=== PATIENT | female | born 1955 | race Caucasian/White ===

== ENCOUNTER 2019-06-12 08:08 | Emergency (ER) | payer OTHER ==
[2019-06-12 08:34] VITALS: BP 114/71
--- NOTE | 2019-06-12 09:19 | UC ---
Complaint Female HPI - HPI Summary HPI Summary: 63 yo postmenopausal woman with one week of frequency without dysuria, with some bladder pressure and urgency. UTI's in the past with similar presentation. - History Of Current Complaint Chief Complaint: UCGU Stated Complaint: URINARY COMPLAINT Time Seen by Provider: 06/12/19 09:12 Hx Obtained From: Patient Onset/Duration: Gradual Onset, Lasting Days - 7 Timing: Intermittent Severity Initially: Mild Severity Currently: Mild Pain Intensity: 0 Character: Cramping Aggravating Factor(s): Urination Alleviating Factor(s): Nothing Associated Signs And Symptoms: Positive: Negative. 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 NSAIDS AdvReac Pt on Uncoded 06/12/19 09:00 Eliquis Home Medications: Home Medications Albuterol HFA INHALER* [Ventolin HFA Inhaler*] 1 - 2 puff INH SEE INSTRUCTIONS PRN 06/12/19 [History Confirmed 06/12/19] Apixaban* [Eliquis*] 5 mg PO BID 06/12/19 [History Confirmed 06/12/19] Chromium Picolinate 0 tab PO DAILY 06/12/19 [History Confirmed 06/12/19] Cranberry 500 mg PO DAILY 06/12/19 [History Confirmed 06/12/19] Garlic 1 each PO DAILY 06/12/19 [History Confirmed 06/12/19] Glucosam/Chondr/Collagn/Hyalur [Glucosamine & Chondroitin Cap] 1 each PO DAILY 06/12/19 [History Confirmed 06/12/19] Minerals Mg, Ca, Zn 1 dose PO DAILY 06/12/19 [History Confirmed 06/12/19] Pantoprazole TAB * [Protonix TAB*] 40 mg PO DAILY 06/12/19 [History Confirmed ] Turmeric Root Extract [Turmeric Curcumin] 500 mg PO DAILY 06/12/19 [History Confirmed 06/12/19] Vegan Epa, Dha, Vitamin D 1 dose PO DAILY 06/12/19 [History Confirmed 06/12/19] Vitamin C 1 Gm 1 dose PO DAILY 06/12/19 [History Confirmed 06/12/19] Vitamins B12, D3, Centrum 1 dose PO DAILY 06/12/19 [History Confirmed 06/12/19] PMH/Surg Hx/FS Hx/Imm Hx Respiratory History: Pulmonary Embolism GI/ History: Gastroesophageal Reflux - Surgical History Surgical History: None - Family History Known Family History: Positive: Non-Contributory - Social History Occupation: Employed Full-time Lives: With Family Alcohol Use: Weekly Alcohol Amount: 2-3 wine Substance Use Type: None Smoking Status (MU): Never Smoked Tobacco Review of Systems All Other Systems Reviewed And Are Negative: Yes Constitutional: Positive: Negative Genitourinary: Positive: Frequency, Urgency Is Patient Immunocompromised?: No Physical Exam Vital Signs: Initial Vital Signs Temp 98.8 F 06/12/19 08:27 Pulse 66 06/12/19 08:27 Resp 16 06/12/19 08:27 BP 114/71 06/12/19 08:27 Pulse Ox 98 06/12/19 08:27 Diagnostics - Laboratory Lab Results: UA with 3+esterace. Complaint Female Dx - Course Course Of Treatment: begin cephalexin for treatment, culture sent. - Differential Dx/Diagnosis Differential Diagnosis/HQI/PQRI: Urinary Tract Infection Provider Diagnosis: UTI (urinary tract infection) Discharge ED - Sign-Out/Discharge Documenting (check all that apply): Patient Departure All imaging exams completed and their final reports reviewed: No Studies - Discharge Plan Condition: Stable Disposition: HOME Prescriptions: cephALEXin [Keflex] 500 mg PO BID #10 capsule Patient Education Materials: Urinary Tract Infection in Women (ED) Referrals: Fredis Garrido MD [Primary Care Provider] - Additional Instructions: begin cephalexin for treatment of urinary tract infection; continue high intake of water. If a change of antibiotic is needed based on the culture report, you will receive a call in 2 to 3 days. - Billing Disposition and Condition Condition: STABLE Disposition: Home
== END 2019-06-12 09:35 | disposition home or self-care (01) ==
LOC: UCCORT 08:08
DX: N39.0 Urinary tract infection, site not specified (principal); Z87.440 Personal history of urinary (tract) infections; I27.82 Chronic pulmonary embolism; Z79.01 Long term (current) use of anticoagulants; K21.9 Gastro-esophageal reflux disease without esophagitis
CPT/HCPCS: 81003; 87077; 87086; 87186; 99212; G0463